=== PATIENT | female | born 1990 | race Caucasian/White ===

== ENCOUNTER 2018-09-28 14:16 | Emergency (ER) | payer OTHER ==
[2018-09-28 14:24] VITALS: BP 121/73; PULSE 117; TEMP 98.2; BMI 23.2
--- NOTE | 2018-09-28 14:24 | PDOC ---
Rapid Medical Evaluation Chief Complaint: Allergic Reaction Time Seen by Provider: 09/28/18 14:22 Medical Evaluation: Allergies Allergy/AdvReac Type Severity Reaction Status Date / Time peanut Allergy Verified 09/28/18 14:21 09/28/18 14:23 I have performed a brief in person evaluation of this patient. The patient's CC: Allergic reaction HPI: Pt states she has an unknown allergy and approx 1 hour [employer] she erupted into a rash on her face and arms. She took Benadryl 50mg [employer]. She has never had to use Epi. PE: Skin: Clear Heart: RRR Lungs: Clear MS. pain upon palpation to the lumbar spine Neuro: Alert and oriented Psch: appropriate affect The patient will proceed to main ED for further evaluation. 09/28/18 14:24 Discharge Disposition - Diagnosis Allergic reaction Qualifiers: Encounter type: initial encounter Qualified Code(s): T78.40XA - Allergy, unspecified, initial encounter - Referrals - Patient Instructions - Post Discharge Activity
--- NOTE | 2018-09-28 14:42 | PDOC ---
Attending Attestation - Resident Resident Name: Dianne Mg - HPI HPI: 09/28/18 15:07 Pt presents to the ED complaining of itching, hives, mouth itching and chest pressure that began this afternoon after eating pizza, pasta and garlic knots from a local restaurant. Patient took benadryl at home with complete relief of her symptoms. - Physicial Exam PE: 09/28/18 15:14 Agree with resident exam. Patient is alert and oriented and in no acute distres. Lungs are clear. No rash. No facial swelling. - Medical Decision Making 09/28/18 15:17 Pt presents to the ED complaining of allergic reaction that is improving after benadryl. Patient is still mildly symptomatic, so will treat with prednisone and observe for two hours.
--- NOTE | 2018-09-28 14:57 | PDOC ---
History of Present Illness - General Chief Complaint: Allergic Reaction Stated Complaint: ALLERGIC REACTION Time Seen by Provider: 09/28/18 14:22 - History of Present Illness Initial Comments: 09/28/18 14:57 The patient is a 28 year old female with a PMH of GERD and HLD who presents to our ED following an allergic reaction. Patient states she ate some garlic knots and pizza around 12:30 p.m. and shortly thereafter felt lip swelling, chest tightness and itching in her groin area. Patient works as a pharmacy technician infusion and her coworkers gave her 50 mg of Benadryl which helped symptoms. States she presented to the ED b/c she was coughing. H/o 2-3 previous allergic reactions with resolution of symptoms with Benadryl + steroids. Previous allergy testing noted she is allergic to peanuts, almonds and cabbage. Denies active chest pain, shortness of breath, abdominal pain, nausea/vomiting. Allergies: NKDA, food allergies as stated in HPI Surgical: R foot bunion removal Social: social alcohol, denies other toxic habits PMD: Dr. Wagoner ([facility]) As per EMR, patient has not been evaluated in our ED on prior occasion. Past History - Past Medical History Allergies/Adverse Reactions: Allergies Allergy/AdvReac Type Severity Reaction Status Date / Time peanut Allergy Verified 09/28/18 14:21 Home Medications: Ambulatory Orders Prednisone 5 mg PO DAILY 2 Days #4 tablet 09/28/18 Prednisone [Deltasone] 20 mg PO DAILY 3 Days #4 tablet 09/28/18 COPD: No Hypercholesterolemia: Yes - Suicide/Smoking/Psychosocial Hx Smoking History: Never smoked Review of Systems - Review of Systems Constitutional: No: Chills, Fever HEENTM: Yes: Throat Pain. No: Recent change in vision Respiratory: Yes: Cough. No: Shortness of Breath, Productive cough Cardiac (ROS): No: Chest Pain, Lightheadedness, Palpitations, Syncope ABD/GI: No: Constipated, Diarrhea, Nausea, Vomiting : No: Burning, Dysuria Integumentary: Yes: Erythema, Pruritus *Physical Exam - Vital Signs Last Vital Signs Temp Pulse Resp BP Pulse Ox 98.2 F 117 H 20 121/73 98 09/28/18 14:21 09/28/18 14:21 09/28/18 14:21 09/28/18 14:21 09/28/18 14:21 - Physical Exam General Appearance: Yes: Nourished, Appropriately Dressed HEENT: positive: Normal Voice, Pharynx Normal, Hearing Grossly Normal Neck: positive: Trachea midline, Supple Respiratory/Chest: positive: Lungs Clear, Normal Breath Sounds. negative: Labored Respiration, Rapid RR Cardiovascular: positive: S1, S2 Vascular Pulses: Dorsalis-Pedis (R): 2+, Doralis-Pedis (L): 2+ Gastrointestinal/Abdominal: positive: Normal Bowel Sounds, Soft Integumentary: positive: Other (scattered abdominal uticaria). negative: Swelling Neurologic: positive: Fully Oriented, Alert Moderate Sedation - Procedure Monitoring Vital Signs: Procedure Monitoring Vital Signs Temperature 98.2 F 09/28/18 14:21 Pulse Rate 117 H 09/28/18 14:21 Respiratory Rate 20 09/28/18 14:21 Blood Pressure 121/73 09/28/18 14:21 O2 Sat by Pulse Oximetry (%) 98 09/28/18 14:21 Medical Decision Making - Medical Decision Making 09/28/18 14:57 28 year old female s/p allergic reaction w/resolved chest tightness, puritus. At presentation tachycardic (HR 117), other VS unremarkable. Repeat HR @ bedside 92, BP 119/81. PE shows mild abdominal uticaria, lungs CLTA B/L. 09/28/18 15:29 Patient reassessed @ bedside, s/p Predisone. Resting comfortably. 09/28/18 16:25 Patient reassessed @ bedside. VSS Abdominal uticaria resolved Will discharge home with steroid taper, return precautions and instruction to follow-up with grounds maintenance worker for further evaluation. I discussed the physical exam findings, ancillary test results and final diagnoses with the patient. I answered all of the patient's questions. The patient was satisfied with the care received and felt comfortable with the discharge plan and treatment plan. The patient will return to the Emergency Department with any new, persistent or worsening symptoms. *DC/Admit/Observation/Transfer Diagnosis at time of Disposition: Allergic reaction Qualifiers: Encounter type: initial encounter Qualified Code(s): T78.40XA - Allergy, unspecified, initial encounter - Discharge Dispostion Disposition: HOME Condition at time of disposition: Good - Prescriptions Prescriptions: Prednisone [Deltasone] 20 mg PO DAILY 3 Days #4 tablet Prednisone 5 mg PO DAILY 2 Days #4 tablet - Referrals Referrals: Rodolfo Wagoner [Primary Care Provider] - - Patient Instructions Printed Discharge Instructions: DI for Eye Allergic Reaction Additional Instructions: We have sent a steroid prescription to your pharmacy. Please complete the entire prescribed course as directed. Please make a follow-up appointment with an grounds maintenance worker for further evaluation. Your care is not complete until you are evaluated by an grounds maintenance worker. Return to the Emergency Department for any new/worsening/concerning symptoms including shortness of breath, throat or facial swelling or hives. - Post Discharge Activity
[2018-09-28] MEDS ORDERED: predniSONE 20 MG TABLET (UD) PO ONE (15:02)
[2018-09-28] MEDS ORDERED: predniSONE 20 MG TABLET (UD) ONE (15:11)
== END 2018-09-28 16:50 | disposition home or self-care (01) ==
LOC: JER 14:16
DX: T78.40XA Allergy, unspecified, initial encounter (principal); L50.0 Allergic urticaria
CPT/HCPCS: 99282-25